=== PATIENT | female | born 1945 | race Caucasian/White ===

== ENCOUNTER 2022-08-16 13:03 | Emergency (ER) | payer MEDICARE, SELFPAY ==
[2022-08-16 13:20] VITALS: BP 179/76; PULSE 61; RESP 17; TEMP 36.3; O2SAT 98; BMI 29.5
--- NOTE | 2022-08-16 13:24 | DI.RAD.S_ITS ---
PROCEDURE: XR KNEE LT 3V INDICATIONS: Twisting injury with pain TECHNIQUE: 3 views of the knee were acquired. COMPARISON: None. FINDINGS: Bones: No fractures or dislocations. No suspicious bony lesions. On the sunrise view, there is moderate patellofemoral joint space narrowing seen. Osteophyte formation can be seen along the margins of the patella. Soft tissues: There is a moderate joint effusion. No suspicious soft tissue calcifications. IMPRESSION: Moderate joint effusion. Focal patellofemoral joint degenerative change. No acute bony abnormality is seen. If it would be helpful for clinical management decision making, please consider a dedicated, scheduled knee MRI for further evaluation (assuming that there is no contraindication). Dictated by: Kalen Gunn M.D. on 08/16/2022 at 12:49 Approved by: Kalen Gunn M.D. on 08/16/2022 at 12:50
[2022-08-16 13:53] VITALS: BP 175/72; PULSE 62; RESP 16; O2SAT 100
--- NOTE | 2022-08-16 14:57 | ED_ITS ---
HPI - Extremity Injury (Lower) <Micaela Gregorio PA-C - Last Filed: 08/16/22 22:07> General Chief Complaint: Extremity Injury, Lower Stated Complaint: Left knee pain non functional per pt Time Seen by Provider: 08/16/22 13:20 Source: patient Mode of arrival: Wheelchair History of Present Illness HPI Narrative: patient is a very pleasant 77 years old female, who states she has had some knee pains, aware of osteoarthritis in both knees, which overall respond to Tylenol and some rest. She experienced worsening left knee pain for the past 3 days. She tried to rest it, took some Tylenol with some relief. 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 When she starts to exercise and walk yesterday, it seemed to trigger excruciating pain at night and woke up today with knee swelling. she admits ambulating become quite difficult. She denies fall, redness in her knee, admits that she does have sensation of knee giving out when she tried to walk. Onset (ago): day(s) (3) Relieving factors: rest Related Data Previous Rx's Medication Instructions Recorded hydrocodone 5 mg-acetaminophen 325 1 tab PO TID PRN pain #30 tabs 08/16/22 mg tablet Allergies Allergy/AdvReac Type Severity Reaction Status Date / Time procaine [From Novocain] AdvReac Severe Drowsy Verified 08/16/22 13:20 latex AdvReac Hives Verified 08/16/22 13:20 Review of Systems <Micaela Gregorio PA-C - Last Filed: 08/16/22 22:07> Review of Systems Narrative: 12 point review of systems is negative except for those stated above Patient History <Micaela Gregorio PA-C - Last Filed: 08/16/22 22:07> Social History Smoking Status: Former smoker Smoking Status: Former smoker alcohol intake frequency: holidays/special occasions only Substance Use Type: does not use Exam <JEFFERSON Bynum Last Filed: 08/16/22 22:07> Narrative Exam Narrative: GENERAL: 77 year old patient appears stated age. Well-developed patient, in no acute distress. she appears comfortable in hospital wheelchair HEAD: Atraumatic. Normocephalic. EYES: Pupils equal round and reactive. Extraocular motions intact. No scleral icterus. No injection or drainage. ENT: Nose without bleeding, purulent drainage. Throat without erythema, tonsi llar hypertrophy or exudate. Airway patent. NECK: Trachea midline. Non tender CARDIOVASCULAR: Regular rate and rhythm without murmurs, gallops, or rubs. RESPIRATORY: Clear to auscultation. Breath sounds equal bilaterally. No wheezes, rales, or rhonchi. GASTROINTESTINAL: Abdomen soft, non-tender, nondistended. EXTREMITIES: left knee diffuse edema and no erythema, mediolateral joint tenderness worse with flexion-extension. BACK: Nontender without deformity or crepitance. No flank tenderness. NEURO: AOx3. no focal deficits SKIN: No rash or erythema of visible areas Initial Vital Signs Initial Vital Signs: Vital Signs Temperature 97.4 F L 08/16/22 13:20 Pulse Rate 61 08/16/22 13:20 Respiratory Rate 17 08/16/22 13:20 Blood Pressure 179/76 H 08/16/22 13:20 Pulse Oximetry 98 08/16/22 13:20 Oxygen Delivery Method 08/16/22 13:20 <Marti Berg DO - Last Filed: 08/20/22 01:58> Initial Vital Signs Initial Vital Signs: Vital Signs Temperature 97.4 F L 08/16/22 13:20 Pulse Rate 61 08/16/22 13:20 Respiratory Rate 17 08/16/22 13:20 Blood Pressure 179/76 H 08/16/22 13:20 Pulse Oximetry 98 08/16/22 13:20 Oxygen Delivery Method 08/16/22 13:20 Course <Micaela Gregorio PA-C - Last Filed: 08/16/22 22:07> Orders Ordered: ED Orders 08/16/22 13:24 XR knee LT 3V Stat Vital Signs Vital signs: Vital Signs - 8 hr 08/16/22 13:20 08/16/22 13:53 Temperature 97.4 F L Pulse Rate 61 62 Respiratory Rate 17 16 Blood Pressure 179/76 H 175/72 H Pulse Oximetry 98 100 Oxygen Delivery Method Room Air Room Air <Marti Berg DO - Last Filed: 08/20/22 01:58> Orders Ordered: ED Orders 08/16/22 13:24 XR knee LT 3V Stat Vital Signs Vital signs: Vital Signs - 8 hr 08/16/22 13:20 08/16/22 13:53 Temperature 97.4 F L Pulse Rate 61 62 Respiratory Rate 17 16 Blood Pressure 179/76 H 175/72 H Pulse Oximetry 98 100 Oxygen Delivery Method Room Air Room Air MDM - Extremity Injury (Lower) <Micaela Gregorio PA-C - Last Filed: 08/16/22 22:07> Imaging Data left knee x-ray: Radiologist's Impression: IMPRESSION:? Moderate joint effusion. ?Focal patellofemoral joint degenerative change. ?No acute bony abnormality is seen. ?If it would be helpful for clinical management decision making, please consider a dedicated, scheduled knee MRI for further evaluation (assuming that there is no contraindication).? ? MDM Narrative Medical decision making narrative: discussed with patient diagnosis and treatment. Patient does have advanced osteoarthritis which triggered acute inflammation and effusion of the joint. Advised patient to try anti-inflammatory, hydrocodone/acetaminophen, wear compression knee support, and ultimately follow with her PCP and be referred to Orthopedics for more advanced testing and treatment. Imaging reviewed: Yes Patient's symptoms improved over duration of stay with above-stated therapies. Findings and discharge diagnosis discussed with patient/family followed by verbalization of understanding Return precautions discussed with patient/family whom verbalize understanding of diagnosis and plan Discharge Plan Departure Patient Disposition: Home Clinical Impression: Edema of knee, Localized osteoarthritis of left knee Instructions: DI for Knee Pain Activity Restrictions/Additional Instructions: *You have been diagnosed with left knee osteoarthritis and knee swelling *What to do: *Please continue to take your regular medications as directed. New medication prescriptions sent to your pharmacy: hydrocodone Tylenol advised to wear knee support with open patella follow-up with orthopedic, please ask your primary care physician for referral in the community *Please follow up with your primary care provider in 2-3 days, call for an appointment. Let them know you were seen in the Emergency Department and that we ask that you be seen in follow up. We will electronically transmit a record of today's note if your PCP is in our system *If you do not have a primary care provider please contact the [facility] Resource line at [phone]. They will ask some questions about your medical history and help get you set up with a doctor in the community. *Return to Emergency Department if you should have any new, worsening or concerning symptoms, such as worsening pain, knee swelling or redness, fever, Prescriptions: New hydrocodone-acetaminophen 5-325 mg tablet 1 tab PO TID PRN (Reason: pain) Qty: 30 0RF Stand Alone Forms: Patient Portal/API <Marti Berg, - Last Filed: 08/20/22 01:58> [facility] Attestation: I was immediately available in the department for consultation. Documentation has been reviewed.
== END 2022-08-16 15:14 | disposition home or self-care (01) ==
PROVIDERS: Emergency Provider Physician Assistant Medical
DX: R60.0 Localized edema (principal); M17.12 Unilateral primary osteoarthritis, left knee
CPT/HCPCS: 73562; 99283